=== PATIENT | female | born 1955 | race Caucasian/White ===

== ENCOUNTER 2017-05-31 13:03 | Inpatient (IN) ==
[2017-05-31] MEDS ORDERED: Ketorolac 30 MG/ML VIAL IVP ONE (13:24)
[2017-05-31 13:30] LABS: Basophils % 0.2 %; Hematocrit 39.3 % (35.3-44.9); Hemoglobin 12.5 g/dL (11.5-15.4); Immature Granulocytes % 0.5 % (0-4); Lymphocytes # 0.5 K/mcL (0.6-4.6); Lymphocytes % 4.8 %; Mean Corpuscular HGB Conc 31.8 g/dL (31.6-35.5); Mean Corpuscular Hemoglobin 28.2 pg (28.0-33.3); Mean Corpuscular Volume 88.7 fL (83.0-100.0); Mean Platelet Volume 10.2 fL (9.4-12.4); Monocytes % 0.3 %; Neutrophils # 9.4 K/mcL (1.6-8.9); Platelet Count 278 K/mcL (140-400); Red Blood Count 4.43 M/mcL (3.82-4.97); Segmented Neutrophils % 94.2 %
--- NOTE | 2017-05-31 13:33 | Emergency Department Note ---
Disposition Clinical Impression: Ureterolithiasis UTI (urinary tract infection) Qualifiers: Urinary tract infection type: site unspecified Hematuria presence: without hematuria Qualified Code(s): N39.0 - Urinary tract infection, site not specified Disposition: Home, Self-Care Condition: Good Instructions: Urinary Tract Infection in Women (ED), Kidney Stones (ED) Prescriptions: OxyCODONE/APAP 5/325 [Percocet 5/325 MG] 1 each PO Q8HR PRN #10 tablet PRN Reason: Pain Cephalexin [Keflex] 500 mg PO BID #14 capsule Ondansetron HCl [Zofran] 4 mg PO Q8-10H PRN #20 tablet PRN Reason: Nausea Referrals: NONE,PCP [Primary Care Provider] - Donny Cullen MD [Partnered Physician] - 06/02/17 ([id number] left stone) Forms: Work/School Release, ED Satisfaction Letter Time of Disposition: 16:07 Abdominal Pain HPI - General Chief Complaint: ED Abdominal Pain Stated Complaint: Abdominal Pain Time Seen by Provider: 05/31/17 13:07 Source: patient, EMS Mode of arrival: EMS Limitations: no limitations Nursing Notes Reviewed: Yes Vital Signs Reviewed: Yes - History of Present Illness HPI Narrative: 62 year old female with HX of LLQ abdominal pain since last night. she states she has a history of kidney stones although this feels different from her previous episodes. PAatient states that she has been nauseated as well in addition to the pain is sharp and radiating into her left sided back. Patinets states that she typically has low grade fevers but feels like it is higher than normal althouguh when she take it at home it is 99.5F. Patinet denies headache, chest pain, shortness of breath, or UTI symptoms. She denies constipation, diarrhea, or hematuria or bloody stools. Patinet states that she does have previous history of abdomnila surgeries including galbladder. Pain Scale: 7 - Related Data Previous Rx's Medication Instructions Recorded Cephalexin [Keflex] 500 mg PO BID #14 capsule 05/31/17 Ondansetron HCl [Zofran] 4 mg PO Q8-10H PRN #20 tablet 05/31/17 OxyCODONE/APAP 5/325 [Percocet 1 each PO Q8HR PRN #10 tablet 05/31/17 5/325 MG] Allergies Allergy/AdvReac Type Severity Reaction Status Date / Time No Known Allergies Allergy Verified 05/31/17 13:10 Constitutional: Denies: fever, chills, weakness, weight change Eyes: Denies: eye pain, eye discharge, vision change ENT ED: Denies: ear pain, throat pain, dental pain, hearing loss, epistaxis, congestion, dysphagia Cardiovascular: Denies: chest pain, palpitations, dyspnea on exertion, edema, syncope Respiratory: Denies: cough, dyspnea, wheezes, hemoptysis, stridor Gastrointestinal: Reports: abdominal pain, nausea. Denies: vomiting, diarrhea, constipation, hematemesis, melena, hematochezia Genitourinary: Denies: dysuria, frequency, hematuria, discharge Musculoskeletal: Denies: back pain, neck pain, arthralgia, myalgia Integumentary: Denies: rash, abrasion, lesions Neurological: Denies: headache, weakness, numbness, paresthesias, confusion, abnormal gait, vertigo Psychiatric: Denies: anxiety, depression, suicidal thoughts, homicidal thoughts , auditory hallucinations, visual hallucinations Endocrine: Denies: fatigue Hematological/Lymphatic: Denies: easy bleeding, easy bruising Allergic/Immunologic: Denies: facial swelling, urticaria Abdominal Pain PMH - Past Medical History Medical history: Reports: kidney stones Female Surgical History: Reports: cholecystectomy, hip replacement Psychiatric history: Reports: no psych history - Social History Smoking status: Never smoker Alcohol use: Reports: none Drug use: Reports: none Physical Exam - General Limitations: no limitations General appearance: alert, in no apparent distress - Head Head exam: atraumatic, normocephalic, normal inspection - Eye Eye exam: Present: normal appearance, PERRL, EOMI - Expanded Eye Exam Pupils: Left: reactive - ENT ENT exam: normal exam, normal oropharynx, mucous membranes moist - Expanded ENT Exam External ear exam: Present: normal external inspection Mouth exam: Present: normal external inspection Teeth exam: Present: normal inspection Throat exam: Present: normal inspection - Neck Neck exam: Present: normal inspection, full ROM, trachea midline - Chest Chest inspection: Present: normal inspection, symmetric chest wall rise - Respiratory Respiratory exam: Present: normal lung sounds bilaterally - Cardiovascular Cardiovascular exam: Present: regular rate, normal rhythm, normal heart sounds - Abdominal Exam Abdominal exam: Present: soft, tenderness. Absent: Non-Tender, distention, guarding, rebound, rigidity Abdominal tenderness: Present: LLQ, mild, moderate - Extremities Exam Extremities exam: Present: normal inspection, full ROM. Absent: tenderness, pedal edema - Expanded Upper Extremity Exam Shoulder exam: Present: normal inspection, full ROM Arm exam: Present: normal inspection, full ROM Elbow exam: Present: normal inspection, full ROM Forearm/Wrist exam: Present: normal inspection, full ROM Hand exam: Present: normal inspection, full ROM Vascular exam: Normal: capillary refill, radial pulse - Expanded Lower Extremity Exam Hip/Pelvis exam: Present: normal inspection, full ROM Upper leg exam: Present: normal inspection, full ROM Knee exam: Present: normal inspection, full ROM Lower leg exam: Present: normal inspection, full ROM Ankle exam: Present: normal inspection, full ROM Foot/toe exam: Present: normal inspection, full ROM Neurovascular/Tendon exam: Absent: motor deficit, sensory deficit, tendon deficit - Back Exam Back exam: Present: normal inspection, full ROM. Absent: tenderness - Neurological Exam Neurological exam: Present: alert, oriented X3 - Expanded Neurological Exam Patient oriented to: Present: person, place, time Coma Scale Eye Opening: Spontaneous Coma Scale Motor Response: Obeys Commands Coma Scale Verbal Response: Oriented Coma Scale Total: 15 - Psychiatric Psychiatric exam: Present: normal affect, normal mood - Skin Skin exam: Present: warm, dry, intact, normal color Course Course Narrative: we will do an abdominla pain workup including a ABCT. IVF and toradol for therapy - Reevaluation(s) Reevaluation #1: updated wily on results. WE have offered wily admissin today and she has declined she would like to try outptinet therapy. Wily abelino be sent home with joanie, percocet, and keflex. Wily undesrstands disharge instructions and comprehends indications to return to eD. She will also be given urology followup. Time: 16:06 Vital Signs Temperature 99.5 F 05/31/17 13:05 Pulse Rate 115 05/31/17 13:05 Respiratory Rate 18 05/31/17 13:05 Blood Pressure 130/109 05/31/17 13:05 O2 Sat by Pulse Oximetry 98 05/31/17 13:05 Temperature 99.5 F 05/31/17 13:05 Pulse Rate 113 05/31/17 14:46 Respiratory Rate 16 05/31/17 16:02 Blood Pressure 124/85 05/31/17 16:02 O2 Sat by Pulse Oximetry 95 05/31/17 14:46 Oxygen Delivery Oxygen Delivery Room Air Abdominal Pain - Lab Data Result diagrams: 05/31/17 13:24 05/31/17 13:24 Lab Results 05/31/17 05/31/17 05/31/17 Range/Units 13:24 13:24 13:24 WBC 10.0 (4.3-11.1) K/mcL RBC 4.43 (3.82-4.97) M/mcL Hgb 12.5 (11.5-15.4) g/dL Hct 39.3 (35.3-44.9) % MCV 88.7 (83.0-100.0) fL MCH 28.2 (28.0-33.3) pg MCHC 31.8 (31.6-35.5) g/dL RDW 14.0 (11.5-14.5) % Plt Count 278 (140-400) K/mcL MPV 10.2 (9.4-12.4) fL Immature Gran % 0.5 (0-4) % Seg Neutrophils % 94.2 % Lymphocytes % 4.8 % Monocytes % 0.3 % Eosinophils % 0.0 % Basophils % 0.2 % Neutrophils # 9.4 H (1.6-8.9) K/mcL Lymphocytes # 0.5 L (0.6-4.6) K/mcL Monocytes # 0.0 (0.0-1.3) K/mcL Eosinophils # 0.0 (0.0-0.6) K/mcL Basophils # 0.0 (0.0-0.2) K/mcL Toxic Granulation Present A (Not Present) Dohle Bodies Present A (Not Present) PT 11.2 (9.4-12.1) Seconds INR 1.0 APTT 29.1 (26.0-36.0) Seconds Sodium 137 (136-145) mEq/L Potassium 3.6 (3.5-4.5) mEq/L Chloride 102 (98-109) mEq/L Carbon Dioxide 23 (19-29) mEq/L BUN 13 (7-20) mg/dL Creatinine 1.06 (0.57-1.11) mg/dL Est GFR ( Amer) > 60 (> 60) Est GFR (Non-Af Amer) 52 L (> 60) BUN/Creatinine Ratio 12 (6-26) Glucose 153 H (70-99) mg/dL Calculated Osmolality 287 (280-300) Lactic Acid (0.5-2.2) mmol/L Calcium 9.6 (8.6-10.8) mg/dL Total Bilirubin 1.0 (0.2-1.2) mg/dL Direct Bilirubin 0.4 (0.0-0.5) mg/dL Indirect Bilirubin 0.6 (0.0-1.2) mg/dL AST 45 H (5-34) Units/L ALT 68 H (0-55) Units/L Alkaline Phosphatase 143 H (38-126) Units/L Troponin I (0-0.03) ng/mL Serum Total Protein 8.7 H (6.0-8.3) g/dL Albumin 3.8 (3.5-5.0) g/dL Globulin 4.9 H (2.4-3.5) g/dL Albumin/Globulin Ratio 0.8 L (1.1-2.2) Amylase 52 (25-125) Units/L Lipase 12 (8-78) Units/L Urine Color (Yellow) Urine Clarity (Clear) Urine pH (5.0-8.0) pH Units Ur Specific [place] (1.010-1.025) Urine Protein (Neg-Trace) mg/dL Urine Glucose (UA) (Normal) mg/dL Urine Ketones (Negative) mg/dL Urine Blood (Negative) Urine Nitrite (Negative) Urine Bilirubin (Negative) Urine Urobilinogen (Normal) mg/dL Ur Leukocyte Esterase (Negative) Urine Microscopic RBC (0-3) per hpf Urine Microscopic WBC (0-3) per hpf Ur Squamous Epith Cells (None-Few) per lpf Urine Bacteria (None-Few) per hpf Hyaline Casts (None-Few) per lpf Ur Culture Indicated? (NO) 05/31/17 05/31/17 05/31/17 Range/Units 13:24 13:24 15:29 WBC (4.3-11.1) K/mcL RBC (3.82-4.97) M/mcL Hgb (11.5-15.4) g/dL Hct (35.3-44.9) % MCV (83.0-100.0) fL MCH (28.0-33.3) pg MCHC (31.6-35.5) g/dL RDW (11.5-14.5) % Plt Count (140-400) K/mcL MPV (9.4-12.4) fL Immature Gran % (0-4) % Seg Neutrophils % % Lymphocytes % % Monocytes % % Eosinophils % % Basophils % % Neutrophils # (1.6-8.9) K/mcL Lymphocytes # (0.6-4.6) K/mcL Monocytes # (0.0-1.3) K/mcL Eosinophils # (0.0-0.6) K/mcL Basophils # (0.0-0.2) K/mcL Toxic Granulation (Not Present) Dohle Bodies (Not Present) PT (9.4-12.1) Seconds INR APTT (26.0-36.0) Seconds Sodium (136-145) mEq/L Potassium (3.5-4.5) mEq/L Chloride (98-109) mEq/L Carbon Dioxide (19-29) mEq/L BUN (7-20) mg/dL Creatinine (0.57-1.11) mg/dL Est GFR ( Amer) (> 60) Est GFR (Non-Af Amer) (> 60) BUN/Creatinine Ratio (6-26) Glucose (70-99) mg/dL Calculated Osmolality (280-300) Lactic Acid 2.9 H (0.5-2.2) mmol/L Calcium (8.6-10.8) mg/dL Total Bilirubin (0.2-1.2) mg/dL Direct Bilirubin (0.0-0.5) mg/dL Indirect Bilirubin (0.0-1.2) mg/dL AST (5-34) Units/L ALT (0-55) Units/L Alkaline Phosphatase (38-126) Units/L Troponin I 0.00 (0-0.03) ng/mL Serum Total Protein (6.0-8.3) g/dL Albumin (3.5-5.0) g/dL Globulin (2.4-3.5) g/dL Albumin/Globulin Ratio (1.1-2.2) Amylase (25-125) Units/L Lipase (8-78) Units/L Urine Color Yellow (Yellow) Urine Clarity Cloudy A (Clear) Urine pH 6.0 (5.0-8.0) pH Units Ur Specific [place] 1.030 H (1.010-1.025) Urine Protein Trace (Neg-Trace) mg/dL Urine Glucose (UA) Normal (Normal) mg/dL Urine Ketones Negative (Negative) mg/dL Urine Blood Negative (Negative) Urine Nitrite Positive A (Negative) Urine Bilirubin Negative (Negative) Urine Urobilinogen Normal (Normal) mg/dL Ur Leukocyte Esterase Small H (Negative) Urine Microscopic RBC 0-3 (0-3) per hpf Urine Microscopic WBC 15-30 H (0-3) per hpf Ur Squamous Epith Cells Many H (None-Few) per lpf Urine Bacteria Many H (None-Few) per hpf Hyaline Casts None Seen (None-Few) per lpf Ur Culture Indicated? YES A (NO)
[2017-05-31 13:35] LABS: Prothrombin Time 11.2 Seconds (9.4-12.1)
[2017-05-31 13:37] LABS: Activated Partial Thrombo Time 29.1 Seconds (26.0-36.0)
[2017-05-31 13:47] LABS: Alanine Aminotransferase 68 Units/L (0-55); Albumin 3.8 g/dL (3.5-5.0); Albumin/Globulin Ratio 0.8 (1.1-2.2); Alkaline Phosphatase 143 Units/L (38-126); Amylase 52 Units/L (25-125); Aspartate Amino Transferase 45 Units/L (5-34); BUN/Creatinine Ratio 12 (6-26); Bilirubin,Direct 0.4 mg/dL (0.0-0.5); Bilirubin,Indirect 0.6 mg/dL (0.0-1.2); Blood Urea Nitrogen 13 mg/dL (7-20); Calcium 9.6 mg/dL (8.6-10.8); Carbon Dioxide 23 mEq/L (19-29); Chloride 102 mEq/L (98-109); Globulin 4.9 g/dL (2.4-3.5); Glucose 153 mg/dL (70-99); Lipase 12 Units/L (8-78); Osmolality,Calculated 287 (280-300); Potassium 3.6 mEq/L (3.5-4.5); Sodium 137 mEq/L (136-145); Total Protein 8.7 g/dL (6.0-8.3); eGFR For African Americans > 60 (> 60); eGFR For Non-African Americans 52 (> 60)
[2017-05-31 14:01] LABS: Dohle Bodies Present (Not Present); Toxic Granulation Present (Not Present)
[2017-05-31 15:46] LABS: Bilirubin,Urine Negative (Negative); Blood,Urine Negative (Negative); Clarity,Urine Cloudy (Clear); Color,Urine Yellow (Yellow); Glucose,Urine (UA) Normal (Normal); Ketones,Urine Negative (Negative); Leukocyte Esterase,Urine Small (Negative); Nitrite,Urine Positive (Negative); Protein,Urine Trace mg/dL (Neg-Trace); Urobilinogen,Urine Normal (Normal)
[2017-05-31 15:47] LABS: Bacteria,Urine Many per hpf (None-Few); Hyaline Casts,Urine None Seen per lpf (None-Few); RBC,Urine 0-3 per hpf (0-3); Squamous Epithelial Cell,Urine Many per lpf (None-Few); WBC,Urine 15-30 per hpf (0-3)
--- NOTE | 2017-05-31 16:43 | Emergency Department Note ---
START Narrative - START START: upon discharge patient took her home medications of perceocet 15mg and then became increasingly more drowsy with a sp02 of 87% on RA. Just before taking her medication she was walking around the department without any problems. Angela partner at bedside states that he gave her 1 15mg percocet and then she started to behave like this. We have placed patient on 2LNC in room and will monitor her at bedside. Currently, she is back to 98% and her pupils are pinpoint. We will not be dispostioning her home with percocet at this time. We will continue to monitor with IVF. We will also order Rocephin IV during her obs perioid in the ED. 1700 Angela heart rate is not improving and it appears she is sinus tachycardia and her bloos pressure is teneous and now 98/57. We will not be dispositoning humberto home and will admit to medicine with consult to urology. We will put a page out to urology. [address] Cullen and he states he will see patient in consult with medicine admit and will likely see her this evening or tomorrow to discuss abot stent placement. Updated patient and they are agreeale to plan. Dr. Cullen will be here in 20-30 minutes to take humberto back to surgery 1800 EKG: sinus tachycardia with rate of 126. NO STEMI. normal intervals. 1758 discussed case with Macey JANE hospitalist group and she accepts patient for admission.
[2017-05-31] MEDS ORDERED: Lidocaine 1% 20 ML MDV ID ONE (16:45)
[2017-05-31] MEDS ORDERED: CefTRIAXone 1,000 MG VIAL IM ONE (16:45)
[2017-05-31] MEDS ORDERED: 0.9 % Sodium Chloride 1,000 ML IVC ONE (17:00)
--- NOTE | 2017-05-31 18:39 | Urology - Consult Note ---
Date of Encounter: 05/31/17 Time of Encounter: 18:35 - Assessment and Plan (1) UTI (urinary tract infection) Current Visit: Yes Status: Acute Assessment and plan: patient receiving broad spectrum abx Qualifiers: Urinary tract infection type: site unspecified Hematuria presence: without hematuria Qualified Code(s): N39.0 - Urinary tract infection, site not specified (2) Ureterolithiasis Current Visit: Yes Status: Acute Assessment and plan: Patient has left UPJ stone. We will plan on taking the patient urgently to the operative room tonight for cystoscopy and left ureteral stent placement. Patient has significant tachycardia as well as low but normal blood pressure. I am concerned for early pyelonephritis/sepsis. Urology CN:HPI Consult date: 05/31/17 Reason for consult Urology: Hydronephrosis Requesting physician: Carie Strong History of present illness: Mrs. Vazquez is a 62-year-old female who was at home today inserted to have severe left-sided flank pain. Patient was brought to the emergency department where she was found to have a left proximal 1 cm UPJ stone with positive urinalysis consistent with possible infection. Patient states that she has had subjective fevers at home. No vomiting but she has had persistent nausea. Past Med Surg Social Fam HX - Past Medical History Medical history: kidney stones Psychiatric history: no psych history - Social History Smoking Status: Never smoker Smokeless Tobacco Status: No Alcohol use: none Drug use: none Medications and Allergies Cephalexin [Keflex] 500 mg PO BID #14 capsule 05/31/17 [Rx] Ondansetron HCl [Zofran] 4 mg PO Q8-10H PRN #20 tablet 05/31/17 [Rx] OxyCODONE/APAP 5/325 [Percocet 5/325 MG] 1 each PO Q8HR PRN #10 tablet 05/31/17 [Rx] Allergies No Known Allergies Allergy (Verified 05/31/17 13:10) Review of Systems - Constitutional fever(s), no chills - EENT Nose, mouth and throat: no dizziness - Cardiovascular no chest pain - Respiratory no cough - Gastrointestinal abdominal pain - Musculoskeletal back pain - Integumentary no erythema - Neurological no confusion - Psychiatric no anxiety - Hematologic/Lymphatic no easy bleeding Exam Initial Vital Signs Temp Pulse Resp BP Pulse Ox 99.5 F 115 18 130/109 98 05/31/17 13:05 05/31/17 13:05 05/31/17 13:05 05/31/17 13:05 05/31/17 13:05 - General physical appearance Present: well developed - Eyes Present: PERRL - Respiratory Present: normal respiratory effort - Cardiovascular Cardiovascular exam IM: RRR - Abdomen Abdomen: Present: soft - Integumentary Present: no rash - Neurologic Present: normal coordination - Musculoskeletal Present: normal gait Urology Results - Labs 05/31/17 13:24 05/31/17 13:24 Abnormal lab results Neutrophils # 9.4 K/mcL (1.6-8.9) H 05/31/17 13:24 Lymphocytes # 0.5 K/mcL (0.6-4.6) L 05/31/17 13:24 Toxic Granulation Present (Not Present) A 05/31/17 13:24 Dohle Bodies Present (Not Present) A 05/31/17 13:24 Est GFR (Non-Af Amer) 52 (> 60) L 05/31/17 13:24 Glucose 153 mg/dL (70-99) H 05/31/17 13:24 Lactic Acid 2.9 mmol/L (0.5-2.2) H 05/31/17 13:24 AST 45 Units/L (5-34) H 05/31/17 13:24 ALT 68 Units/L (0-55) H 05/31/17 13:24 Alkaline Phosphatase 143 Units/L (38-126) H 05/31/17 13:24 Serum Total Protein 8.7 g/dL (6.0-8.3) H 05/31/17 13:24 Globulin 4.9 g/dL (2.4-3.5) H 05/31/17 13:24 Albumin/Globulin Ratio 0.8 (1.1-2.2) L 05/31/17 13:24 Urine Clarity Cloudy (Clear) A 05/31/17 15:29 Ur Specific [place] 1.030 (1.010-1.025) H 05/31/17 15:29 Urine Nitrite Positive (Negative) A 05/31/17 15:29 Ur Leukocyte Esterase Small (Negative) H 05/31/17 15:29 Urine Microscopic WBC 15-30 per hpf (0-3) H 05/31/17 15:29 Ur Squamous Epith Cells Many per lpf (None-Few) H 05/31/17 15:29 Urine Bacteria Many per hpf (None-Few) H 05/31/17 15:29 Ur Culture Indicated? YES (NO) A 05/31/17 15:29 Diabetes panel 05/31/17 Range/Units 13:24 Sodium 137 (136-145) mEq/L Potassium 3.6 (3.5-4.5) mEq/L Chloride 102 (98-109) mEq/L Carbon Dioxide 23 (19-29) mEq/L BUN 13 (7-20) mg/dL Creatinine 1.06 (0.57-1.11) mg/dL Glucose 153 H (70-99) mg/dL Calcium 9.6 (8.6-10.8) mg/dL AST 45 H (5-34) Units/L ALT 68 H (0-55) Units/L Alkaline Phosphatase 143 H (38-126) Units/L Albumin 3.8 (3.5-5.0) g/dL Calcium panel 05/31/17 Range/Units 13:24 Calcium 9.6 (8.6-10.8) mg/dL Albumin 3.8 (3.5-5.0) g/dL Pituitary panel 05/31/17 Range/Units 13:24 Sodium 137 (136-145) mEq/L Potassium 3.6 (3.5-4.5) mEq/L Chloride 102 (98-109) mEq/L Carbon Dioxide 23 (19-29) mEq/L BUN 13 (7-20) mg/dL Creatinine 1.06 (0.57-1.11) mg/dL Glucose 153 H (70-99) mg/dL Calcium 9.6 (8.6-10.8) mg/dL Adrenal panel 05/31/17 Range/Units 13:24 Sodium 137 (136-145) mEq/L Potassium 3.6 (3.5-4.5) mEq/L Chloride 102 (98-109) mEq/L Carbon Dioxide 23 (19-29) mEq/L BUN 13 (7-20) mg/dL Creatinine 1.06 (0.57-1.11) mg/dL Glucose 153 H (70-99) mg/dL Calcium 9.6 (8.6-10.8) mg/dL Total Bilirubin 1.0 (0.2-1.2) mg/dL AST 45 H (5-34) Units/L ALT 68 H (0-55) Units/L Alkaline Phosphatase 143 H (38-126) Units/L Albumin 3.8 (3.5-5.0) g/dL All other labs normal. - Imaging CT scan - abdomen: image reviewed CT scan - pelvis: image reviewed Consult Discharge Plan - Plan Instructions: Kidney Stones (ED), Urinary Tract Infection in Women (ED) Referrals: Donny Cullen MD [Partnered Physician] - 06/02/17 ([id number] left stone) NONE,PCP [Non-Partnered Physician] - Prescriptions: OxyCODONE/APAP 5/325 [Percocet 5/325 MG] 1 each PO Q8HR PRN #10 tablet PRN Reason: Pain Cephalexin [Keflex] 500 mg PO BID #14 capsule Ondansetron HCl [Zofran] 4 mg PO Q8-10H PRN #20 tablet PRN Reason: Nausea
[2017-05-31] MEDS ORDERED: Lidocaine -MPF 2% 2 ML VIAL ONE ×3 (19:18→20:15)
[2017-05-31] MEDS ORDERED: *HR* FentaNYL (PF) 100 MCG/2 ML VIAL ONE (19:19)
[2017-05-31] MEDS ORDERED: *HR* Midazolam HCl 2 MG/2 ML VIAL ONE (19:19)
[2017-05-31] MEDS ORDERED: *HR* Propofol 200 MG/20 ML VIAL IVP ONE (19:19)
[2017-05-31] MEDS ORDERED: *HR* Morphine 2 MG/ML SYRINGE IVP PRN ×2 (19:20→22:07)
[2017-05-31] MEDS ORDERED: Naloxone 0.4 MG/ML INJ IVP PRN ×2 (19:20→22:07)
--- NOTE | 2017-05-31 19:27 | Anesthesia Evaluation PreOp ---
Date of Encounter: 05/31/17 Time of Encounter: 19:25 - Past History Planned Operation: Cystoscopy, L-ureteral stent placement Cardiac History: Denies any Significant Hx Pulmonary History: Denies Any Significant HX ANESTHESIOLOGY PHYSICIAN ASSISTANT History: Other (Chronic Hip Pain managed on Gabapentin, MS Contin) Other Medical History: Renal (kidney stones), GERD (maintained on Omeoprazole, Ranitidine) Anesthesia History: No Prior Anesthetic Complications, Past Anesthesia ([place], R -Hip Replacement 2004, R-Hip revision (2004-2005ish)) Alcohol Use: none Drug use: none Medications and Allergies Cephalexin [Keflex] 500 mg PO BID #14 capsule 05/31/17 [Rx] Ondansetron HCl [Zofran] 4 mg PO Q8-10H PRN #20 tablet 05/31/17 [Rx] OxyCODONE/APAP 5/325 [Percocet 5/325 MG] 1 each PO Q8HR PRN #10 tablet 05/31/17 [Rx] Allergies No Known Allergies Allergy (Verified 05/31/17 13:10) - Meds/Allergy Pre-op Review Medications Reviewed: Yes Allergies Reviewed: Yes Beta Blockers on Current Med List: No Anesthesia Results - Labs 05/31/17 13:24 05/31/17 13:24 Laboratory Tests 05/31/17 05/31/17 13:24 13:24 PT 11.2 INR 1.0 Est GFR (Non-Af Amer) 52 L - Imaging EKG: image reviewed (122bpm ST) Anesthesia Exam Vital Signs Temp Pulse Resp BP Pulse Ox 05/31/17 18:50 121 16 110/68 99 05/31/17 18:10 124 16 102/63 97 05/31/17 17:49 126 14 98/67 94 05/31/17 17:17 120 16 106/71 97 05/31/17 16:42 126 12 113/73 94 05/31/17 14:46 113 16 124/85 95 05/31/17 13:13 109 16 130/109 97 05/31/17 13:05 99.5 F 115 18 130/109 98 Intake and Output 05/31/17 05/31/17 05/31/17 07:59 15:59 23:59 Intake Total 100 / 100 Balance 100 / 100 Intake: IV Fluids 100 / 100 Rocephin 1,000 MG In 100 / 100 Dextrose 5% (Minibag+) 100 ML 100 ML @ 200 mls/ hr IVPB ONCE ONE Rx#: [id number] Other: Stool Characteristics Normal for Patient Weight 84.822 kg Patient Weight 05/31/17 23:59 Weight 84.822 kg Height: 5'3" Weight: 187# BMI = 33 NPO (# of Hours): MNOc - HEENT Pupil (Motor): Pupils equal, EOMI Mallampati: II Teeth: Missing, Poor dentition Oral Opening: Greater than 3 - ANESTHESIOLOGY PHYSICIAN ASSISTANT LOC: Oriented ANESTHESIOLOGY PHYSICIAN ASSISTANT Motor: Normal RUE, Normal LUE, Normal RLE, Normal LLE, Normal Face ANESTHESIOLOGY PHYSICIAN ASSISTANT Sensory: Normal: RUE, LUE, RLE, LLE, Face - Cardiac Rhythm: Regular Murmur: None - Pulmonary Breath Sounds: bilateral Clear Respiratory Effort: Symmetrical Anesthesia Assess/Plan ASA Score: 3 (Obesity, early urosepsis,) Modified [place] Scale for Level of Consciousness: Cooperative, oriented, and tranquil Anesthetic Plan: General Monitoring Plan: Standard Monitors Recovery Plan: PACU Anes Supervising Prov Stmt: Pt seen/evaluated, R&B discussed, questions answered and consent obtained. Frantz Velarde MD
[2017-05-31] MEDS ORDERED: Ringers Solution, Lactated 1,000 ML IVC SCH (19:30)
--- NOTE | 2017-05-31 19:34 | Internal Med History&Physical ---
Date of Encounter: 05/31/17 Time of Encounter: 19:26 Assessment and Plan (1) Ureterolithiasis Current visit: Yes Status: Acute IV morphine for pain, ED d/w urology who plan for operative intervention. NPO now (2) UTI (urinary tract infection) Current visit: Yes Status: Acute empiric rocephin, IVF Qualifiers: Urinary tract infection type: site unspecified Hematuria presence: without hematuria Qualified Code(s): N39.0 - Urinary tract infection, site not specified (3) Hydronephrosis Current visit: Yes Status: Acute supportive care, management of stone disease above Qualifiers: Hydronephrosis type: with renal calculous obstruction Qualified Code(s): N13.2 - Hydronephrosis with renal and ureteral calculous obstruction Internal Medicine - H&P: HPI Chief complaint: left sided kidney pain History of present illness: Ms. Vazquez is a 62 year old female who presents with acute onset left side flank pain today. Found to have a left UPJ, stone associated with pyelonephritis and early UTI. She was at home today and developed worsening left side flank today today. Described as sharp, non-radiating, rates 8/10. Associated with fever. Presented to the ED where she was found to have lef upj stone with left side hydro. IMPRESSION: 1. Left UPJ calculus measuring 6 x 8 x 12 mm with mild left-sided hydronephrosis. Decreased enhancement of the left kidney. 2. Otherwise no acute findings in the abdomen or pelvis. Previous cholecystectomy. No CT evidence of appendicitis. 3. There is a 3.3 cm cyst in the right adnexa. A cyst was present on the previous study measuring 2.7 cm. Recommend follow-up ultrasound in one years time to document stability. Past Med Surg Social Fam HX - Past Medical History Medical history: kidney stones Psychiatric history: no psych history - Social History Smoking Status: Never smoker Smokeless Tobacco Status: No Alcohol use: none Drug use: none Internal Medicine - H&P: Meds Cephalexin [Keflex] 500 mg PO BID #14 capsule 05/31/17 [Rx] Ondansetron HCl [Zofran] 4 mg PO Q8-10H PRN #20 tablet 05/31/17 [Rx] OxyCODONE/APAP 5/325 [Percocet 5/325 MG] 1 each PO Q8HR PRN #10 tablet 05/31/17 [Rx] Allergies No Known Allergies Allergy (Verified 05/31/17 13:10) All Systems PM: A 10-system review of systems was performed and is negative for pertinent findings except as documented above in the HPI. Review of systems: ROS 14 point review of systems reviewed as best as possible given presentation. Pertinent positive or negative as per HPI or otherwise reviewed as negative - Constitutional Vitals: Temp Pulse Resp BP Pulse Ox 99.5 F 121 16 110/68 99 05/31/17 13:05 05/31/17 18:50 05/31/17 18:50 05/31/17 18:50 05/31/17 18:50 Exam: General - AAO x 3 Psych - Appropriate affect/speech. No agitation Eyes - MARITZA. Eye lids intact. No scleral icterus ENT - Oral mucosa pink, dentition intact. External ear clear/dry/intact. No thyromegaly Lymphatics - No cervical/inguinal lympadenopathy Neuro - No gross peripheral or central neuro deficits with intact CN 2-12 exam Heart - Sinus. RRR. S1 and S2 present. No added HS/murmurs appreciated. No elevated JVD appreciated. No calf swellings/erythema Lung - Adequate air entry b/l, No crackes/wheezes appreciated GI - Soft, non-tender. No hepatosplenomegaly/ascites. BS+ - left-sided flank discomfort on palpation. suprapubic tenderness or palpable bladder distension Skin - Intact. No rash/petechiae/ecchymosis. Warm extremities MSK - Joints with normal ROM. No joint swellings Internal Med - H&P Results - Labs CBC & Chem 7: 05/31/17 13:24 05/31/17 13:24
[2017-05-31] MEDS: Ringers Solution, Lactated 1,000 ML IVC SCH ×3 (19:37→21:28)
[2017-05-31] MEDS ORDERED: Famotidine 20 MG/2 ML VIAL ONE (19:41)
[2017-05-31] MEDS ORDERED: Acetaminophen IV 1,000 MG/100 ML INFUS..BTL ONE (19:41)
[2017-05-31] MEDS ORDERED: Metoclopramide 10 MG/2 ML VIAL ONE (19:41)
[2017-05-31] MEDS ORDERED: *HR* Etomidate 40 MG/20 ML VIAL IVP ONE (20:15)
--- NOTE | 2017-05-31 20:34 | Operative Note ---
Date of procedure: 05/31/17 Pre-op diagnosis: left upj stone with sepsis Post-op diagnosis: same Procedure: Cystoscopy and left 6 x 26 m ureteral stent placement Anesthesia: MARTÍN Surgeon: Donny Cullen Condition: stable Disposition: PACU Procedure in Detail: Patient was prepped and draped in normal sterile fashion. Timeout procedure performed. I then inserted the cystoscope in the patient's bladder. I cannulated the left ureteral orifice using a zip wire. Fluoroscopy was used which showed contrast within the left kidney consistent with IV contrast given during recent CT scan. I then placed a 6 x 26 ammeter ureteral stent with good curl seen in the bladder as well as in the upper pole of the left kidney. Hydronephrotic urine was seen coming from the left kidney without any obvious pus. Patient taken to PACU in stable condition. Patient's blood pressure remained lower during the surgery but stable.
[2017-05-31] MEDS ORDERED: *HR* Phenylephrine 10 MG/ML VIAL ONE (20:39)
[2017-05-31] MEDS ORDERED: Lacri-Lube 3.5 GM TUBE ONE (20:39)
[2017-05-31] MEDS ORDERED: *HR* Promethazine 25 MG/ML VIAL IVP PRN (21:13)
[2017-05-31] MEDS ORDERED: *HR* HYDROmorphone (PF) 1 MG/ML SYRINGE IVP PRN (21:13)
--- NOTE | 2017-05-31 21:17 | Anesthesia Evaluation Post Op ---
Date of Encounter: 05/31/17 Time of Encounter: 21:15 - Vital Signs Vital Signs: Vital Signs/O2 Sat/Glucose, Most Current Vital Signs/O2 Sat/Glucose, Most Current Temp Pulse Resp BP Pulse Ox 05/31/17 21:43 110 16 84/52 97 05/31/17 21:33 101.6 F H 112 16 84/53 97 05/31/17 21:23 101.8 F H 112 16 85/58 97 05/31/17 21:13 102.0 F H 113 16 84/55 97 05/31/17 21:03 101.8 F H 110 16 76/55 97 05/31/17 20:53 115 16 82/53 98 05/31/17 20:43 101.6 F H 118 16 95/56 98 05/31/17 19:38 101.8 F H 127 18 101/74 99 05/31/17 19:30 98.2 F 16 112/72 05/31/17 18:50 121 16 110/68 99 05/31/17 18:10 124 16 102/63 97 - Lungs Lungs: Clear Ascult./Percussion - Airway Airway: Non-obstructed - Cardiovascular Regular Rate, Baseline Rhythm - Mental Status Mental Status: Asleep without brisk response to light stimulation - Pain Pain Scale: 4 Pain Scale used: Numeric (1 - 10) - Nausea Vomiting Nausea Vomiting: Not Present - Hydration Hydration: Ice chips, Mcbride catheter - Discharge PostOp Status: Transfer Patient to floor Anes Supervising Prov Stmt: Pt seen/evaluated, VSS and pt has met criteria for discharge to floor. Discussed Hypotension w/uroseptic clinical picture with Dr. Cullen. Pt stable, less tachycardic, making urine but remains hypotensive despite fluid administration. Subhash aware and proceeds with transfer of pt to floor. Hospitalist aware [per Subhash] - MD Prachi
[2017-05-31] MEDS: 0.9 % Sodium Chloride 1,000 ML IVC SCH (23:19)
[2017-06-01] MEDS: 0.9 % Sodium Chloride 1,000 ML IVC SCH (00:53)
[2017-06-01] MEDS: Ringers Solution, Lactated 1,000 ML IVC SCH ×2 (02:00→14:34)
[2017-06-01 05:22] LABS: Red Cell Distribution Width 14.5 % (11.5-14.5)
[2017-06-01 05:23] LABS: Hematocrit 30.2 % (35.3-44.9); Hemoglobin 9.7 g/dL (11.5-15.4); Mean Corpuscular HGB Conc 32.1 g/dL (31.6-35.5); Mean Corpuscular Hemoglobin 28.2 pg (28.0-33.3); Mean Corpuscular Volume 87.8 fL (83.0-100.0); Mean Platelet Volume 10.9 fL (9.4-12.4); Platelet Count 206 K/mcL (140-400); Red Blood Count 3.44 M/mcL (3.82-4.97)
[2017-06-01 05:32] LABS: Alanine Aminotransferase 46 Units/L (0-55); Albumin/Globulin Ratio 0.7 (1.1-2.2); Alkaline Phosphatase 100 Units/L (38-126); Aspartate Amino Transferase 35 Units/L (5-34); BUN/Creatinine Ratio 12 (6-26); Bilirubin,Total 0.5 mg/dL (0.2-1.2); Blood Urea Nitrogen 12 mg/dL (7-20); Carbon Dioxide 23 mEq/L (19-29); Chloride 109 mEq/L (98-109); Globulin 3.6 g/dL (2.4-3.5); Glucose 179 mg/dL (70-99); Osmolality,Calculated 290 (280-300); Potassium 3.8 mEq/L (3.5-4.5); Sodium 138 mEq/L (136-145); eGFR For African Americans > 60 (> 60); eGFR For Non-African Americans 55 (> 60)
[2017-06-01 05:38] LABS: Albumin 2.5 g/dL (3.5-5.0); Total Protein 6.1 g/dL (6.0-8.3)
[2017-06-01] MEDS: *HR* Enoxaparin 30 MG/0.3 ML SYRINGE SQ SCH (05:41)
[2017-06-01] MEDS ORDERED: *HR* Enoxaparin 30 MG/0.3 ML SYRINGE SQ SCH (06:00)
[2017-06-01] MEDS ORDERED: 0.9 % Sodium Chloride 500 ML IVC ONE (07:24)
--- NOTE | 2017-06-01 08:08 | Internal Med Progress Note ---
<MargaritoSegun - Last Filed: 06/01/17 10:49> Date of Encounter: 06/01/17 Time of Encounter: 08:07 - Assessment and plan (1) UTI (urinary tract infection) Current Visit: Yes Status: Acute Assessment and plan: Continue Rocephin day 2 today Urine cultures still pending Blood pressures borderline low, continue IVF Qualifiers: Urinary tract infection type: site unspecified Hematuria presence: without hematuria Qualified Code(s): N39.0 - Urinary tract infection, site not specified (2) Leukocytosis Current Visit: Yes Status: Acute Assessment and plan: White count did elevate to 26 from 10 yesterday Likely secondary to stress from surgery Will continue IV abx and recheck CBC in AM Qualifiers: Qualified Code(s): D72.829 - Elevated white blood cell count, unspecified (3) Ureterolithiasis Current Visit: Yes Status: Acute Assessment and plan: s/p cystoscopy with stent placement on 05/31/17 by urology Patient is doing well with pain control at the time, but will continue PRN analgesics (4) Hydronephrosis Current Visit: Yes Status: Acute Assessment and plan: Management per Urology Qualifiers: Hydronephrosis type: with renal calculous obstruction Qualified Code(s): N13.2 - Hydronephrosis with renal and ureteral calculous obstruction (5) DVT prophylaxis Current Visit: Yes Status: Acute Assessment and plan: Lovenox SQ - Subjective Interval history: Pt seen and examined. She states she is doing well this morning and only has minimal pain where she had her stone removed. Has no issues with chest pain, shortness of breath, nausea, vomiting, diarrhea. Had no overnight fevers. - Constitutional Vitals: Temp Pulse Resp BP Pulse Ox 98.4 F 87 17 107/67 99 06/01/17 07:31 06/01/17 07:31 06/01/17 07:31 06/01/17 07:31 06/01/17 07:31 General appearance: Present: cooperative, pleasant, no acute distress, answers questions appropriately - Head Head exam: Present: atraumatic, normocephalic - Eye Eye exam: Present: PERRL, conjuntiva pink, sclera anicteric - Neck Neck exam general surgery: Present: supple, trachea midline. Absent: lymphadenopathy - Respiratory Respiratory exam: Present: CTAB. Absent: accessory muscle use, rales, rhonchi, wheezes - Cardiovascular Cardiovascular exam: Present: RRR, +S1, +S2. Absent: diastolic murmur, gallop, rubs, systolic murmur - GI/Abdominal GI/Abdominal exam: Present: normal bowel sounds, soft, no peritoneal signs. Absent: distended, tenderness - Extremities Exam Extremities exam: Present: warm, radial pulses palpable and symmetrical. Absent : calf tenderness, cyanotic, pedal edema - Neurological Exam Neurological exam: Present: alert, no focal deficits. Absent: facial droop, speech deficit - Skin Skin exam: Present: dry, intact Internal Medicine: Result - Labs CBC & Chem 7: 06/01/17 04:37 06/01/17 04:37 Labs: Short CBC 06/01/17 Range/Units 04:37 WBC 26.0 H D (4.3-11.1) K/mcL Hgb 9.7 L D (11.5-15.4) g/dL Hct 30.2 L (35.3-44.9) % Plt Count 206 (140-400) K/mcL BMP 06/01/17 04:37 Sodium 138 Potassium 3.8 Chloride 109 Carbon Dioxide 23 BUN 12 Creatinine 1.01 Glucose 179 H Calcium 8.0 L D Liver Function 06/01/17 Range/Units 04:37 Total Bilirubin 0.5 (0.2-1.2) mg/dL AST 35 H (5-34) Units/L ALT 46 (0-55) Units/L Alkaline Phosphatase 100 (38-126) Units/L Albumin 2.5 L D (3.5-5.0) g/dL - ABG Interpretation ABG results: PT/INR, D-dimer PT 11.2 Seconds (9.4-12.1) 05/31/17 13:24 - VTE Documentation of Mechanical Device: Intermittent pneumatic compression device Consult Discharge Plan - Plan Referrals: Karlie Lomeli MD [Primary Care Provider] - (Web requested 06/01/17) <Lazaro Jj - Last Filed: 06/01/17 14:12> Date of Encounter: 06/01/17 - Constitutional Vitals: Temp Pulse Resp BP Pulse Ox 98.7 F 76 17 107/70 98 06/01/17 11:01 06/01/17 11:01 06/01/17 11:01 06/01/17 11:01 06/01/17 11:01 Internal Medicine: Result - Labs CBC & Chem 7: 06/01/17 04:37 06/01/17 04:37 Labs: Short CBC 06/01/17 Range/Units 04:37 WBC 26.0 H D (4.3-11.1) K/mcL Hgb 9.7 L D (11.5-15.4) g/dL Hct 30.2 L (35.3-44.9) % Plt Count 206 (140-400) K/mcL BMP 06/01/17 04:37 Sodium 138 Potassium 3.8 Chloride 109 Carbon Dioxide 23 BUN 12 Creatinine 1.01 Glucose 179 H Calcium 8.0 L D Liver Function 06/01/17 Range/Units 04:37 Total Bilirubin 0.5 (0.2-1.2) mg/dL AST 35 H (5-34) Units/L ALT 46 (0-55) Units/L Alkaline Phosphatase 100 (38-126) Units/L Albumin 2.5 L D (3.5-5.0) g/dL - ABG Interpretation ABG results: PT/INR, D-dimer PT 11.2 Seconds (9.4-12.1) 05/31/17 13:24 - Attending Attestation I examined this patient and my medical decision-making was reviewed with the Resident Physician on 06/01/17. I agree with the documented findings, disposition and treatment plan as described except to the extent set forth below. 62F She has a known hx of urolithiasis, chornic hip pain She is admitted and being managed for severe sepsis secondary to Complicated UTI with obstructive uropathy She also had hydronephrosis Her BP is improving with IBF URine culture is GNR She complained of chest pressure , resolved with ASA, EKG is NSR Physical exam: Tmax 102, tachycardia resolved, BP is low normal, AAOX3, chest is CTAB, HS S1, S2 only, no m/g/r, Abdomen is soft and not tender, no pedal edema Labs and imaging reviewed A/P: Severe sepsis: Continue IVF and Ceftriaxone, follow cultures Hypotension continue IVF Leukocytosis: Possibly reactionary, continue IVF and antibiotics Hydronephrosis, (L)- s/p stent placement, monitor Urine output Rest of details as in resident physician's documentation
[2017-06-01] MEDS ORDERED: Aspirin 325 MG TABLET PO ONE (10:14)
--- NOTE | 2017-06-01 10:23 | Urology Progress Note ---
Date of Encounter: 06/01/17 Time of Encounter: 10:20 - Assessment and Plan (1) UTI (urinary tract infection) Current Visit: Yes Status: Acute Assessment and plan: continue broad spectrum abx Qualifiers: Urinary tract infection type: site unspecified Hematuria presence: without hematuria Qualified Code(s): N39.0 - Urinary tract infection, site not specified (2) Ureterolithiasis Current Visit: Yes Status: Acute Assessment and plan: sp stenting. good uop. chest pain being worked up by primary team Progress Note Narrative: POD 1 from cysto and left ureteral stent placement. patients BP low but stable overnight. Patient now complaining of chest pain. Objective Initial Vital Signs Temp Pulse Resp BP Pulse Ox 99.5 F 115 18 130/109 98 05/31/17 13:05 05/31/17 13:05 05/31/17 13:05 05/31/17 13:05 05/31/17 13:05 - General physical appearance Present: well developed - Abdomen Present: soft - Genitourinary Present: other (urine clear) - Labs 06/01/17 04:37 06/01/17 04:37 Diabetes panel 06/01/17 Range/Units 04:37 Sodium 138 (136-145) mEq/L Potassium 3.8 (3.5-4.5) mEq/L Chloride 109 (98-109) mEq/L Carbon Dioxide 23 (19-29) mEq/L BUN 12 (7-20) mg/dL Creatinine 1.01 (0.57-1.11) mg/dL Glucose 179 H (70-99) mg/dL Calcium 8.0 L D (8.6-10.8) mg/dL AST 35 H (5-34) Units/L ALT 46 (0-55) Units/L Alkaline Phosphatase 100 (38-126) Units/L Albumin 2.5 L D (3.5-5.0) g/dL Calcium panel 06/01/17 Range/Units 04:37 Calcium 8.0 L D (8.6-10.8) mg/dL Albumin 2.5 L D (3.5-5.0) g/dL Pituitary panel 06/01/17 Range/Units 04:37 Sodium 138 (136-145) mEq/L Potassium 3.8 (3.5-4.5) mEq/L Chloride 109 (98-109) mEq/L Carbon Dioxide 23 (19-29) mEq/L BUN 12 (7-20) mg/dL Creatinine 1.01 (0.57-1.11) mg/dL Glucose 179 H (70-99) mg/dL Calcium 8.0 L D (8.6-10.8) mg/dL Adrenal panel 06/01/17 Range/Units 04:37 Sodium 138 (136-145) mEq/L Potassium 3.8 (3.5-4.5) mEq/L Chloride 109 (98-109) mEq/L Carbon Dioxide 23 (19-29) mEq/L BUN 12 (7-20) mg/dL Creatinine 1.01 (0.57-1.11) mg/dL Glucose 179 H (70-99) mg/dL Calcium 8.0 L D (8.6-10.8) mg/dL Total Bilirubin 0.5 (0.2-1.2) mg/dL AST 35 H (5-34) Units/L ALT 46 (0-55) Units/L Alkaline Phosphatase 100 (38-126) Units/L Albumin 2.5 L D (3.5-5.0) g/dL - VTE Documentation of Mechanical Device: Intermittent pneumatic compression device Consult Discharge Plan - Plan Referrals: Karlie Lomeli MD [Primary Care Provider] - (Web requested 06/01/17)
[2017-06-01] MEDS ORDERED: *HR* OxyCODONE Immed Rel 15 MG TABLET PO PRN (11:00)
[2017-06-01] MEDS: *HR* OxyCODONE Immed Rel 15 MG TABLET PO PRN ×2 (11:19→20:08)
--- NOTE | 2017-06-01 17:42 | Electrocardiograph Report ---
[place] [id number] Test Date: 2017-05-31 Pat Name: Brina Vazquez Department: 104 Room: 2A11 Gender: F Primary Clinician: BRUCE : 1955 Requested By: Carie Strong Order Number: [id number] Reading MD: Mare Maldonado Measurements Intervals [place] Rate: 126 P: 49 AL: 148 QRS: -9 QRSD: 109 T: 103 QT: 336 QTc: 410 Interpretive Statements SINUS TACHYCARDIA LOW QRS VOLTAGE IN PRECORDIAL LEADS LEFTWARD AXIS LEFT VENTRICULAR HYPERTROPHY AND ST-T CHANGE Electronically Signed On 06-01-2017 17:40:54 EDT by Mare Maldonado
[2017-06-02] MEDS: Gabapentin 300 MG CAPSULE PO SCH ×4 (00:35→21:44)
[2017-06-02] MEDS: Ringers Solution, Lactated 1,000 ML IVC SCH (00:41)
[2017-06-02] MEDS: *HR* OxyCODONE Immed Rel 15 MG TABLET PO PRN ×3 (02:46→21:45)
[2017-06-02] MEDS ORDERED: hydrOXYzine pamoate 25 MG CAPSULE PO ONE (03:21)
[2017-06-02 04:16] LABS: BUN/Creatinine Ratio 12 (6-26); Blood Urea Nitrogen 10 mg/dL (7-20); Calcium 8.8 mg/dL (8.6-10.8); Carbon Dioxide 22 mEq/L (19-29); Chloride 107 mEq/L (98-109); Glucose 114 mg/dL (70-99); Osmolality,Calculated 286 (280-300); Potassium 3.5 mEq/L (3.5-4.5); Sodium 138 mEq/L (136-145); eGFR For African Americans > 60 (> 60); eGFR For Non-African Americans > 60 (> 60)
[2017-06-02 06:03] LABS: Hematocrit 33.2 % (35.3-44.9); Hemoglobin 10.9 g/dL (11.5-15.4); Mean Corpuscular HGB Conc 32.8 g/dL (31.6-35.5); Mean Corpuscular Hemoglobin 28.5 pg (28.0-33.3); Mean Corpuscular Volume 86.9 fL (83.0-100.0); Mean Platelet Volume 11.5 fL (9.4-12.4); Nucleated Red Blood Cells 0.2 /100 WBC (0); Platelet Count 209 K/mcL (140-400); Red Blood Count 3.82 M/mcL (3.82-4.97); Red Cell Distribution Width 14.6 % (11.5-14.5)
[2017-06-02] MEDS: *HR* Enoxaparin 30 MG/0.3 ML SYRINGE SQ SCH (06:13)
[2017-06-02 07:11] LABS: Lymphocytes # 0.6 K/mcL (0.6-4.6); Neutrophils # 15.4 K/mcL (1.6-8.9); Platelet Estimate Normal (Normal)
[2017-06-02 07:12] LABS: Large Platelets Present (Not Present)
--- NOTE | 2017-06-02 07:42 | Urology Progress Note ---
Date of Encounter: 06/02/17 Time of Encounter: 07:40 - Assessment and Plan (1) UTI (urinary tract infection) Current Visit: Yes Status: Acute Assessment and plan: needs 2 weeks culture specific abx. Qualifiers: Urinary tract infection type: site unspecified Hematuria presence: without hematuria Qualified Code(s): N39.0 - Urinary tract infection, site not specified (2) Ureterolithiasis Current Visit: Yes Status: Acute Assessment and plan: sp stenting. needs f/u with me in 2-3 weeks to discuss stone tx. Progress Note Narrative: Patient seen. feeling better. Objective Initial Vital Signs Temp Pulse Resp BP Pulse Ox 99.5 F 115 18 130/109 98 05/31/17 13:05 05/31/17 13:05 05/31/17 13:05 05/31/17 13:05 05/31/17 13:05 - General physical appearance Present: well developed - Abdomen Present: soft - Genitourinary Urine Appearance: Present: Clear - Labs 06/02/17 03:35 06/02/17 03:35 Diabetes panel 06/02/17 Range/Units 03:35 Sodium 138 (136-145) mEq/L Potassium 3.5 (3.5-4.5) mEq/L Chloride 107 (98-109) mEq/L Carbon Dioxide 22 (19-29) mEq/L BUN 10 (7-20) mg/dL Creatinine 0.81 (0.57-1.11) mg/dL Glucose 114 H (70-99) mg/dL Calcium 8.8 (8.6-10.8) mg/dL Calcium panel 06/02/17 Range/Units 03:35 Calcium 8.8 (8.6-10.8) mg/dL Pituitary panel 06/02/17 Range/Units 03:35 Sodium 138 (136-145) mEq/L Potassium 3.5 (3.5-4.5) mEq/L Chloride 107 (98-109) mEq/L Carbon Dioxide 22 (19-29) mEq/L BUN 10 (7-20) mg/dL Creatinine 0.81 (0.57-1.11) mg/dL Glucose 114 H (70-99) mg/dL Calcium 8.8 (8.6-10.8) mg/dL Adrenal panel 06/02/17 Range/Units 03:35 Sodium 138 (136-145) mEq/L Potassium 3.5 (3.5-4.5) mEq/L Chloride 107 (98-109) mEq/L Carbon Dioxide 22 (19-29) mEq/L BUN 10 (7-20) mg/dL Creatinine 0.81 (0.57-1.11) mg/dL Glucose 114 H (70-99) mg/dL Calcium 8.8 (8.6-10.8) mg/dL - VTE Documentation of Mechanical Device: Intermittent pneumatic compression device Consult Discharge Plan - Plan Referrals: Karlie Lomeli MD [Primary Care Provider] - (Web requested 06/01/17)
[2017-06-02] MEDS ORDERED: 0.9 % Sodium Chloride 1,000 ML IVC ONE (07:56)
[2017-06-02] MEDS ORDERED: 0.9 % Sodium Chloride 500 ML IVC ONE (08:30)
--- NOTE | 2017-06-02 08:42 | Internal Med Progress Note ---
<Deshaun Celestin - Last Filed: 06/02/17 14:06> Date of Encounter: 06/02/17 Time of Encounter: 09:00 - Assessment and plan (1) UTI (urinary tract infection) Current Visit: Yes Status: Acute Assessment and plan: CT A/P showed left UPJ calculus that is [id number] with mild left sided hydronephrosis. Cyst present that is 3.3cm on right adenexa, follow up in 1 year recommended. Urine culture grew su sensitive E. Coli left ureteral stent placement on 05/31/17 Plan: ceftriaxone day 2 2 weeks culture specific antibiotics per urology. blood pressures low 500 cc bolus given today, continue IVF outpatient follow up with urology. remove mike catheter today. Qualifiers: Urinary tract infection type: site unspecified Hematuria presence: without hematuria Qualified Code(s): N39.0 - Urinary tract infection, site not specified (2) Leukocytosis Current Visit: Yes Status: Acute Assessment and plan: improved to 16 from 26 yesterday (likely reactive from surgery) plan as above Qualifiers: Leukocytosis type: unspecified Qualified Code(s): D72.829 - Elevated white blood cell count, unspecified (3) Ureterolithiasis Current Visit: Yes Status: Acute Assessment and plan: s/p cystoscopy with stent placement on 05/31/17 by urology continue with pain control. (4) Hydronephrosis Current Visit: Yes Status: Acute Assessment and plan: plan as above Qualifiers: Hydronephrosis type: with renal calculous obstruction Qualified Code(s): N13.2 - Hydronephrosis with renal and ureteral calculous obstruction (5) DVT prophylaxis Current Visit: Yes Status: Acute Assessment and plan: Lovenox SQ - Subjective Interval history: 62 year old female evaluated at bedside. she denies nausea, vomiting, diarrhea, fever, chills, chest pain, shortness of breath. she says her pain is significantly improved since her cystoscopy. - Constitutional Vitals: Temp Pulse Resp BP Pulse Ox 99.2 F 114 16 89/57 92 06/02/17 06:43 06/02/17 06:43 06/02/17 06:43 06/02/17 06:43 06/02/17 06:43 General appearance: Present: cooperative, A&O X 3, pleasant, no acute distress, obese, answers questions appropriately - Head Head exam: Present: atraumatic, normocephalic - Neck Neck exam general surgery: Present: supple, trachea midline - Respiratory Additional comments: mild lower lobe rales present. - Cardiovascular Cardiovascular exam: Present: RRR, +S1, +S2 - GI/Abdominal GI/Abdominal exam: Present: normal bowel sounds, soft. Absent: distended, tenderness - Extremities Exam Extremities exam: Absent: cyanotic, pedal edema - Back Exam Back exam: Absent: CVA tenderness (L), CVA tenderness (R) - Neurological Exam Neurological exam: Present: alert, oriented X3, no focal deficits - Psychiatric Psychiatric exam: Present: normal affect, normal mood - Skin Skin exam: Present: intact Internal Medicine: Result - Labs CBC & Chem 7: 06/02/17 03:35 06/02/17 03:35 Labs: Short CBC 06/02/17 Range/Units 03:35 WBC 16.0 H (4.3-11.1) K/mcL Hgb 10.9 L (11.5-15.4) g/dL Hct 33.2 L (35.3-44.9) % Plt Count 209 (140-400) K/mcL Neutrophils # 15.4 H (1.6-8.9) K/mcL BMP 06/02/17 03:35 Sodium 138 Potassium 3.5 Chloride 107 Carbon Dioxide 22 BUN 10 Creatinine 0.81 Glucose 114 H Calcium 8.8 - ABG Interpretation ABG results: PT/INR, D-dimer PT 11.2 Seconds (9.4-12.1) 05/31/17 13:24 - VTE Documentation of Mechanical Device: Intermittent pneumatic compression device Consult Discharge Plan - Plan Referrals: Karlie Lomeli MD [Primary Care Provider] - 06/11/17 10:45 am () <Lazaro Jj - Last Filed: 06/02/17 14:19> Date of Encounter: 06/02/17 - Constitutional Vitals: Temp Pulse Resp BP Pulse Ox 98.8 F 87 17 107/67 92 06/02/17 11:35 06/02/17 11:35 06/02/17 11:35 06/02/17 11:35 06/02/17 11:35 Internal Medicine: Result - Labs CBC & Chem 7: 06/02/17 03:35 06/02/17 03:35 Labs: Short CBC 06/02/17 Range/Units 03:35 WBC 16.0 H (4.3-11.1) K/mcL Hgb 10.9 L (11.5-15.4) g/dL Hct 33.2 L (35.3-44.9) % Plt Count 209 (140-400) K/mcL Neutrophils # 15.4 H (1.6-8.9) K/mcL BMP 06/02/17 03:35 Sodium 138 Potassium 3.5 Chloride 107 Carbon Dioxide 22 BUN 10 Creatinine 0.81 Glucose 114 H Calcium 8.8 - ABG Interpretation ABG results: PT/INR, D-dimer PT 11.2 Seconds (9.4-12.1) 05/31/17 13:24 - Attending Attestation I examined this patient and my medical decision-making was reviewed with the Resident Physician on 06/02/17. I agree with the documented findings, disposition and treatment plan as described except to the extent set forth below. 62F She has a known hx of urolithiasis, chronic hip pain She is admitted and being managed for severe sepsis secondary to Complicated UTI with obstructive uropathy She is seen at bedside this morning with no new complains Physical exam: She remains febrile, Tmax 102, tachycardic, BP is low normal, AAOX3, chest is CTAB, HS S1, S2 only, no m/g/r, Abdomen is soft and not tender, no pedal edema. with Mike draining clear urine Labs and imaging reviewed: Leukocytosis improving Urine culture with su-sensitive E.coli A/P: Severe sepsis: Continue IVF and Ceftriaxone, follow cultures Hypotension is improving, continue IVF. D/C lactated ringers, d/c Mike Leukocytosis: Secondary to sepsis and stress of suregery, improving, continue to monitor Hydronephrosis, (L)- s/p stent placement, monitor Urine output Rest of details as in resident physician's documentation
[2017-06-02] MEDS: 0.9 % Sodium Chloride 1,000 ML IVC SCH ×2 (12:05→21:44)
[2017-06-02] MEDS: Acetaminophen 325 MG TABLET PO PRN (16:02)
[2017-06-03] MEDS: *HR* OxyCODONE Immed Rel 15 MG TABLET PO PRN ×2 (04:11→13:47)
[2017-06-03] MEDS ORDERED: *HR* Enoxaparin 40 MG/0.4 ML SYRINGE SQ SCH (06:00)
[2017-06-03] MEDS: 0.9 % Sodium Chloride 1,000 ML IVC SCH ×2 (06:04→10:18)
[2017-06-03] MEDS: Gabapentin 300 MG CAPSULE PO SCH ×2 (07:45→13:47)
[2017-06-03] MEDS: Acetaminophen 325 MG TABLET PO PRN (07:56)
[2017-06-03 08:13] LABS: Basophils # 0.1 K/mcL (0.0-0.2); Basophils % 0.3 %; Eosinophils # 0.1 K/mcL (0.0-0.6); Eosinophils % 0.7 %; Hematocrit 30.7 % (35.3-44.9); Immature Granulocytes % 0.4 % (0-4); Lymphocytes % 11.5 %; Mean Corpuscular HGB Conc 32.6 g/dL (31.6-35.5); Mean Corpuscular Hemoglobin 28.2 pg (28.0-33.3); Mean Corpuscular Volume 86.7 fL (83.0-100.0); Mean Platelet Volume 11.4 fL (9.4-12.4); Monocytes % 5.4 %; Neutrophils # 15.3 K/mcL (1.6-8.9); Platelet Count 204 K/mcL (140-400); Red Blood Count 3.54 M/mcL (3.82-4.97); Red Cell Distribution Width 14.6 % (11.5-14.5); Segmented Neutrophils % 81.7 %
[2017-06-03 08:14] LABS: Lymphocytes # 2.2 K/mcL (0.6-4.6)
[2017-06-03 08:29] LABS: BUN/Creatinine Ratio 8 (6-26); Blood Urea Nitrogen 6 mg/dL (7-20); Calcium 8.7 mg/dL (8.6-10.8); Carbon Dioxide 24 mEq/L (19-29); Chloride 110 mEq/L (98-109); Glucose 96 mg/dL (70-99); Osmolality,Calculated 291 (280-300); Sodium 142 mEq/L (136-145); eGFR For African Americans > 60 (> 60); eGFR For Non-African Americans > 60 (> 60)
[2017-06-03 08:33] LABS: Potassium 4.1 mEq/L (3.5-4.5)
--- NOTE | 2017-06-03 09:52 | Discharge Summary ---
<Ellis Kaur P - Last Filed: 06/03/17 16:59> Date of Encounter: 06/03/17 - Discharge Medications Prescriptions: Ciprofloxacin HCl 750 mg PO BID #22 tablet Docusate [Colace] 100 mg PO BID PRN #60 tab PRN Reason: Constipation Home Medications: Gabapentin [Neurontin] 600 mg PO TID 06/01/17 [History] Morphine Sulfate SR (12 HR) [MS Contin] 1 tab PO DAILY PRN 06/01/17 [History] OxyCODONE Immed Rel [Roxicodone 15 MG] 15 mg PO Q6HR PRN 06/01/17 [History] Tramadol HCl [Ultram] 50 - 100 mg PO TID PRN 06/01/17 [History] Ciprofloxacin HCl 750 mg PO BID #22 tablet 06/03/17 [Rx] Docusate [Colace] 100 mg PO BID PRN #60 tab 06/03/17 [Rx] Allergies/Adverse Reactions: Allergies No Known Allergies Allergy (Verified 05/31/17 13:10) Date of admission: 05/31/17 19:20 Primary care physician: Karlie Lomeli - Patient Status Disposition: Home, Self-Care Condition: Good - Discharge Instructions Instructions: Ciprofloxacin (By mouth), Urinary Tract Infection in Women (DC) Follow Up With: Donny Cullen MD [Partnered Physician] - Karlie Lomeli MD [Primary Care Provider] - 06/04/17 3:45 pm (Please follow up as schedule...) Additional Instructions: Follow up with PCP tomorrow please finish course of antibiotics. Take first dose of ciprofloxacin this evening. follow up with urology in 2-3 weeks to discuss stone treatment. please return to emergency department if you develop fever, chills, chest pain, shortness of breath. Hospital course: Ms. Vazquez is a 62 year old female - Time Spent with Patient Total time spent providing and/or coordinating discharge services: - Constitutional Vitals: Temp Pulse Resp BP Pulse Ox 98.2 F 75 16 127/75 96 06/03/17 10:00 06/03/17 10:00 06/03/17 10:00 06/03/17 10:00 06/03/17 10:00 - Attending Attestation I examined this patient and my medical decision-making was reviewed with the Resident Physician. I agree with the documented findings, disposition and treatment plan as described except to the extent set forth below. 62/F Admitted with left UPJ obstructing nephrolithiasis. She underwent urologic intervention. Urine culture positive for Escherichia coli: Pansensitive. Day 4 of hospitalization. Spoke with PCP Dr. Correia. Patient can go home today. Ciprofloxacin 750 mg twice a day for total duration of 2 weeks. Patient to see PCP tomorrow at 3:45 PM Patient is aware of the appointment. <Deshaun Celestin - Last Filed: 06/03/17 17:10> Date of Encounter: 06/03/17 Time of Encounter: 09:44 - Discharge Diagnosis (1) Ureterolithiasis Priority: Primary Status: Acute (2) UTI (urinary tract infection) Priority: Secondary Status: Acute Qualifiers: Urinary tract infection type: site unspecified Hematuria presence: without hematuria Qualified Code(s): N39.0 - Urinary tract infection, site not specified (3) Leukocytosis Priority: Secondary Status: Acute Qualifiers: Leukocytosis type: unspecified Qualified Code(s): D72.829 - Elevated white blood cell count, unspecified (4) Hydronephrosis Priority: Secondary Status: Acute Qualifiers: Hydronephrosis type: with renal calculous obstruction Qualified Code(s): N13.2 - Hydronephrosis with renal and ureteral calculous obstruction (5) DVT prophylaxis Priority: Secondary Status: Acute Date of admission: 05/31/17 19:20 Primary care physician: Karlie Lomeli - Patient Status Overall status at discharge: patient is progressing back to baseline - Diet and Activity Activity: increase activity as tolerated Diet: advance to your usual diet Hospital course: Ms. Vazquez is a 62 year old female with PMHx of kidney stones, chronic back pain. she arrived to [facility] on 05/31/17 with CC of left flank pain. CT A/P showed a left UPJ calculus that is [id number] with mild left sided hydronephrosis, and cyst present that was 3.3cm on right adnexa (follow up in 1 year was recommended ). Patient was placed on ceftriaxone, had urine cultures sent (which grew su sensitive E.Coli), and urology was consulted. Urology had performed a cystoscopy with left sided stent placement on 05/31/17 by urology. After her procedure, patient spiked fevers overnight and was observed. On day of discharge , she had remained afebrile for over 24 hours but her white count was slightly elevated compared to the prior day. Her PCP Karlie Lomeli was called by attending physician Dr. Kaur and made aware of this situation. Appointment was made for the day after patient's hospital discharge. She was discharged home on ciprofloxacin. Patient had no acute events during her hospital stay. SHe was stable throughout the course of her hospital stay, and remained stable upon discharge. she will follow up outpatient with her PCP and urology. Plan: Follow up with PCP tomorrow please finish course of antibiotics. Take first dose of ciprofloxacin this evening. follow up with urology in 2-3 weeks to discuss stone treatment. please return to emergency department if you develop fever, chills, chest pain, shortness of breath. - Time Spent with Patient Total time spent providing and/or coordinating discharge services: Less than 30 minutes - Constitutional Vitals: Temp Pulse Resp BP Pulse Ox 99.0 F 87 16 129/86 95 06/03/17 06:43 06/03/17 06:43 06/03/17 06:43 06/03/17 06:43 06/03/17 06:43 General appearance: Present: cooperative, A&O X 3, pleasant, no acute distress, obese, answers questions appropriately - Head Head exam: Present: atraumatic, normocephalic - Neck Neck exam general surgery: Present: supple, trachea midline - Respiratory Additional comments: rales heard in lower lobes bilaterally. - Cardiovascular Cardiovascular exam: Present: RRR, +S1, +S2 - GI/Abdominal GI/Abdominal exam: Present: normal bowel sounds, soft. Absent: distended, tenderness - Extremities Exam Extremities exam: Present: pedal edema. Absent: cyanotic - Neurological Exam Neurological exam: Present: alert, oriented X3, no focal deficits - Psychiatric Psychiatric exam: Present: normal affect, normal mood - Skin Skin exam: Absent: cyanosis - VTE Documentation of Mechanical Device: Intermittent pneumatic compression device
[2017-06-03 11:31] VITALS: BP 127/75
== END 2017-06-03 17:05 | disposition home or self-care (01) | DRG 872 ==
LOC: 2ANU 13:03 → EMEROO 13:03 → SUATTDRO 19:20 → 2ANU 19:32
PROVIDERS: ADMIT Internal Medicine Endocrinology, Diabetes & Metabolism; ATTEND Internal Medicine